=== PATIENT | male | born 1990 | race Caucasian/White ===

== ENCOUNTER 2018-01-22 14:36 | Inpatient (IN) | payer BC, OTHER ==
[~2018-01-22] VITALS: Ht 185.4 cm; Wt 79.4 kg
[2018-01-22 15:00] VITALS: BP 138/66
--- NOTE | 2018-01-22 15:00 | NUR ---
Pre-admission Note/Behavior: Client is seen in intake at this time. He appears flushed, disheveled, odorous, and appears to be in an intoxicated state. He stated "I am here cause I'm a fucking alcoholic." He is verbally aggressive, and uncooperative and appears to be angry. Client refuses to answer some admission questions. However, he states that he has not have any seizures in the past and is allergic to Pentobarbital. He wishes to be FULL CODE and follows a regular diet at home. He denies any family hx of substance abuse. VS: BP 138/60, Pulse 112, O2 sat 98%, PL 0/10. Temp 98.1. After taking his VS, patient aggressively removed his BP cuff and thew the BP cuff towards the nurse. Client was encouraged to comply and explained consequences of his actions. But client continues to argue and was becoming rude towards the nurse. He is alert and oriented x 4. Denies S/I or H/I at this time. No AV hallucinations noted. Explained the admission process to the client and client stated "Yea, yea, whatever. I'm sick of this shit." Will continue with the admission process when client arrives in the unit. Dr. Neves made aware of patient's current condition and behavior while in intake.
--- NOTE | 2018-01-22 15:06 | NUR ---
Admission Note: Admitted a 27 year old male admitted for ETOH withdrawal under the care of Dr. Kp Neves. He is alert and verbally responsive. Oriented x 4. Appears intoxicated but able to safely ambulate ad shelly in the unit. Respirations even and unlabored. No SOB noted. Body search done. No contraband was found. Skin check done. Noted with skin abrasion on his upper lip. Patient declined to state how he sustained the abrasion. Abdomen soft and non-distended. BS (+) in all 4 quadrants. No complains of N/V/D or constipation noted. Voids independently. LBM was today. Able to provide urine for UDS and able consented to blood draw. He reports that his longest period of sobriety was for 1 year, ending in 2016. He reports being incarcerated for assault earlier this week and immediately relapsed for 4 days. He states that he is currently homeless and is unemployed. He reports past medical hx of Depression, and Insomnia. He is also reports history of involuntary psychiatric hospitalization for suicidal ideations when he was 13 years old. Denies having a PCP at this time. Substance Use: 1. ETOH (beer, rum, vodka) - he reports drinking "20 shots" daily x 4 days. Last consumed was the day of present admission, 1 hour prior to arrival, "20 shots" of vodka. 2. Methamphetamine - reports ingesting it intranasally on a non-daily intermittent basis, and refuses to state when the last time he ingested it. Treatment History: 1. Patient states that he has been to multiple treatment programs in the past, the latest being in a residential treatment center 5 months ago. He also stated that he forgot the name of the place. Dr. Neves aware of patient's behavior and current medical condition. Placed patient on fall and seizure precautions. Call light in reach. Educated patient on his current plan of care. Educated on unit's policy and procedures. Addendum: 01/22/18 at 1653 by GUERA LEON LVN CIWA upon admission 11- due to sweating, agitation/anxiety. Patient is also uncooperative at this time. Encouraged appropriate behavior and to be respectful to staff.
[2018-01-22] MEDS ORDERED: MAG HYDROX/AL HYDROX/SIMETH 30 ML LIQUID UDC PO PRN (15:15)
[2018-01-22] MEDS ORDERED: ONDANSETRON 4 MG/2 ML VIAL IM PRN (15:15)
[2018-01-22] MEDS ORDERED: LOPERAMIDE HCL 2 MG CAPSULE PO PRN ×2 (15:15)
[2018-01-22] MEDS ORDERED: diphenhydrAMINE 50 MG CAPSULE PO PRN (15:15)
[2018-01-22] MEDS ORDERED: THIAMINE HCL 200 MG/2 ML VIAL IM ONE (15:15)
[2018-01-22] MEDS ORDERED: ACETAMINOPHEN 325 MG TABLET PO PRN (15:15)
[2018-01-22] MEDS ORDERED: MIRALAX 17 GM POWD.PACK PO PRN (15:15)
[2018-01-22] MEDS ORDERED: LORAZEPAM 2 MG/1 ML VIAL IM PRN (15:15)
[2018-01-22] MEDS ORDERED: DICYCLOMINE HCL 20 MG TABLET PO PRN (15:15)
[2018-01-22] MEDS ORDERED: IBUPROFEN 400 MG TABLET PO PRN (15:15)
[2018-01-22] MEDS ORDERED: ONDANSETRON ODT 4 MG TAB.RAPDIS SL PRN (15:15)
[2018-01-22] MEDS ORDERED: NICOTINE 14 MG/24HR PATCH TD PRN (15:15)
[2018-01-22] MEDS ORDERED: MAGNESIUM HYDROXIDE 30 ML LIQUID UDC PO PRN (15:15)
[2018-01-22] MEDS ORDERED: LORAZEPAM 1 MG TABLET PO PRN (15:15)
[2018-01-22] MEDS ORDERED: NICOTINE POLACRILEX 4 MG GUM-PK OF TEN BC PRN (15:15)
[2018-01-22] MEDS ORDERED: BUPR-96 PO (15:40)
[2018-01-22] MEDS ORDERED: QUET25TA PO (15:40)
[2018-01-22 15:47] LABS: BASOPHILS % (AUTO) 0.5 % (0.0-2.0); BILIRUBIN,TOTAL 0.1 mg/dL (0.2-1.0); CREATININE 1.1 mg/dL (0.6-1.3); EOSINOPHILS # (AUTO) 0.1 K/uL (0.0-0.7); EOSINOPHILS % (AUTO) 1.5 % (0.0-7.0); HEMATOCRIT 35.6 % (36.7-47.1); HEMOGLOBIN 12.2 g/dL (12.5-16.3); LYMPHOCYTES % (AUTO) 34.4 % (20.5-51.5); MAGNESIUM 1.9 mg/dL (1.8-2.4); MEAN CORPUSCULAR HEMOGLOBIN 30.5 uug (23.8-33.4); MEAN CORPUSCULAR HGB CONC 34 g/dL (32.5-36.3); MEAN CORPUSCULAR VOLUME 88.9 fL (73.0-96.2); MONOCYTES # (AUTO) 0.5 K/uL (2.0-10.0); MONOCYTES % (AUTO) 5.4 % (0.0-11.0); NEUTROPHILS # (AUTO) 5.1 K/uL (1.8-8.9); NEUTROPHILS % (AUTO) 58.2 % (38.5-71.5); PLATELET COUNT (AUTO) 284 K/uL (152-348); POTASSIUM 3.8 mmol/L (3.5-5.1); TOTAL PROTEIN, SERUM 6.9 g/dL (6.4-8.2); WHITE BLOOD COUNT (AUTO) 8.8 K/uL (3.6-10.2)
[2018-01-22 16:00] VITALS: BP 139/78
--- NOTE | 2018-01-22 16:00 | NUR ---
DOMENICA Byrnered: Patient is seen in his room. Laying in bed with eyes closed. Breathing even and unlabored. He refuses to be woken up at this time. Addendum: 01/22/18 at 1705 by GUERA LEON LVN Amended: Links added.
--- NOTE | 2018-01-22 16:00 | NUR ---
Vitamin B1 not administration: Patient refused Vitamin B1 injection at at this time, after multiple attempts and encouragement. Explained risk and benefits but patient refused and stated "Just get out of my room."
[2018-01-22 16:10] LABS: *AMPHETAMINE, URINE NEGATIVE (NEGATIVE); *BARBITURATE, URINE NEGATIVE (NEGATIVE); *CANNABINOID, URINE NEGATIVE (NEGATIVE); *COCCAINE, URINE NEGATIVE (NEGATIVE); *OPIATE, URINE NEGATIVE (NEGATIVE); *PHENCYCLIDINE SCREEN,URINE NEGATIVE (NEGATIVE)
--- NOTE | 2018-01-22 16:21 | NUR ---
Critical Lab: NIKA Kaminski RN received call from rBe Reddy from lab regarding patient's NIKA level of 0.22. Dr. Neves made aware.
--- NOTE | 2018-01-22 19:03 | NUR ---
End of Shift Notes: Patient is in his room at this time. No signs of discomfort noted. Appears disheveled, unshaven and unkempt. Room is filled with empty chip bags and empty juice bottles. Encouraged maintenance of personal hygiene and space. Patient's last CIWA 4. Refused Vitamin B1 injection at 1515. Patient still appears acutely intoxicated at this time. Appetite good. Consumed 100% of dinner. No meds given. Will continue to monitor.
--- NOTE | 2018-01-22 19:30 | NUR ---
Start of Shift Notes Received 27 y/o male px, admitted for medically supervised withdrawals from ETOH. Px is awake on bed in right side lying position. Px appears disheveled, odorous, and unkempt. Room is odorous. Px is anxious and demanding. Px stated my anxiety is 9/10 and I have H/A of 6/10. Px verbalized "I want Ativan, and I want that pill to knock me out". Px is advised to drink water 2-3 L daily or as tolerated. Bed on lowest position, side rails up 2x, and call light are within reach. We'll continue to monitor.
[2018-01-22 20:00] VITALS: BP 136/64
[2018-01-22] MEDS: LORAZEPAM 1 MG TABLET PO PRN (20:30)
--- NOTE | 2018-01-22 20:30 | NUR ---
PRN Ativan Ativan 1 mg/tab, 2 tabs given PO as PRN med for anxiety. CIWA 14. We'll continue to monitor.
--- NOTE | 2018-01-22 21:30 | NUR ---
Reassessment of Anxiety Px stated "My anxiety improved a little". CIWA 11. We'll continue to monitor.
[2018-01-23] VITALS: BP 129/67
[2018-01-23 04:00] VITALS: BP 126/71
--- NOTE | 2018-01-23 04:00 | NUR ---
CIWA deferred CIWA deferred at 0000 and 0400 due to the px is asleep, to assess if the px is awake per doctor's order. We'll continue to monitor.
--- NOTE | 2018-01-23 07:06 | NUR ---
End of Shift Notes During the shift, at 2029, Ativan 1mg/tab, 2 tabs given PO as PRN med. It was effective, CIWA improved from 14 to CIWA 11. Px's oral intake 1,400 ml, voided 3x. No BM. Slept for 9 hours. At 0630, px is asleep on bed in wyman position. Bed on lowest position, side rails up 2x, and call light are within reach. We'll continue to monitor. Px endorsed to AM shift nurse.
--- NOTE | 2018-01-23 07:40 | NUR ---
START OF SHIFT NOTE Received report from night nurse, patient received PRN 2mg Ativan, slept for 9 hours, last CIWA score was-11. Received patient disheveled, poor oral hygiene, odorous breath, diaphoretic,cloths thrown on the floor, room is odorous, poor eye contact, worried, anxious, agitated, restless,yawning. Patient is currently not on any taper but PRN'S available for increased s/s of withdrawal. Educated pt regarding plan of the day and medication regimen patient verbalized understanding. Safety measures in place. Will cont to monitor.
[2018-01-23 08:00] VITALS: BP 119/63
[2018-01-23] MEDS: MULTIVITAMINS,THERAPEUTIC TABLET PO SCH (08:48)
[2018-01-23] MEDS: THIAMINE HCL 100 MG TABLET PO SCH (08:48)
[2018-01-23] MEDS: FOLIC ACID 1 MG TABLET PO SCH (08:48)
--- NOTE | 2018-01-23 08:54 | NUR ---
PRN ATIVAN CIWA score noted 12, patient noted agitated, anxious, nauseated, light headed, Ativan 1mg PO administered as ordered. Will cont to monitor and reassess.
[2018-01-23] MEDS ORDERED: TUBERCULIN,PURIF.PROT.DERIV. 5 TU/0.1 ML TEST ID ONE (09:00)
--- NOTE | 2018-01-23 09:54 | NUR ---
ATIVAN REASSESSMENT CIWA score noted 7, per pt Ativan was effective feeling less anxious and agitated.
[2018-01-23] MEDS: buPROPion XL 150 MG TAB.SR.24H PO SCH (11:30)
[2018-01-23 12:00] VITALS: BP 128/71
[2018-01-23] MEDS: LORAZEPAM 1 MG TABLET PO PRN ×2 (12:43→23:23)
--- NOTE | 2018-01-23 12:43 | NUR ---
PRN ATIVAN CIWA score noted 15, patient reported increased agitation, anxiety, nausea, light headed, sweats, bilateral tremors noted. Ativan 2 mg PO administered as ordered. Will cont to monitor and reassess.
--- NOTE | 2018-01-23 13:43 | NUR ---
ATIVAN REASSESSMENT CIWA score noted 9, per pt Ativan was effective feeling less anxious and agitated.
[2018-01-23] MEDS: LORAZEPAM 1 MG TABLET PO SCH ×2 (14:58→20:35)
[2018-01-23 16:00] VITALS: BP 134/74
--- NOTE | 2018-01-23 18:56 | NUR ---
END OF SHIFT NOTE Patient presented with anxiety, agitation, nauseated, light headed, sweating, unshaven, garbage around room, flat, restless, irritable. Patient was given scheduled medications and PRN Ativan x2 noted to be effective. Patient rested in his room most of the day but went down to smoke couple of times. Encourage pt to attend groups and activities to learn new coping skills pt verbalized understanding. Vital signs WNL. Skin intact warm and dry to touch. Safety measures in place. Patient endorsed to night nurse in stable condition.
[2018-01-23 20:00] VITALS: BP 138/64
--- NOTE | 2018-01-23 20:00 | NUR ---
Start of Shift Pt is a 27 year old male admitted for ETOH withdrawal, placed on modified Ativan taper. At time of assessment, pt presents in room, alert/oriented x4. Pt appears unkempt, odorous, unshaven, flushed/clammy skin, clothes thrown on floor, anxious, sad/flat/depressed, guarded, tremors noted, reports feeling chills throughout body. Medications are due, safety measures in place, will continue to monitor.
[2018-01-23] MEDS ORDERED: QUETIAPINE FUMARATE 25 MG TABLET PO SCH (21:00)
--- NOTE | 2018-01-23 23:23 | NUR ---
PRN Administration CIWA 13, pt presents with anxiety/irritation/agitation, skin is flushed, tremors visible, skin noted with sweat, restlessness. Ativan 2mg PRN administered.
[2018-01-24] VITALS: BP 130/70
--- NOTE | 2018-01-24 | NUR ---
PRN Reassessment CIWA 8, BP 130/70, resp 16, SpO2 96% room air, temp 98 Needs met, safety measures in place, will continue to monitor. Addendum: 01/24/18 at 0550 by ELSIE LOGAN RN PRN Reassessment CIWA 8, BP 130/70, pulse 80 resp 16, SpO2 96% room air, temp 98 Needs met, safety measures in place, will continue to monitor.
[2018-01-24 04:00] VITALS: BP 121/75
--- NOTE | 2018-01-24 04:00 | NUR ---
MIREILLEWA Deferred d/t pt sleeping, to assess while pt is awake as ordered BP 121/75, pulse 83, resp 16, SpO2 99% room air, temp [address], will continue to monitor.
--- NOTE | 2018-01-24 07:07 | NUR ---
End of Shift Pt is a 27 year old male admitted for ETOH withdrawal, placed on modified Ativan taper. During shift, pt presented with s/s of withdrawal: Pt appeared unkempt, odorous, unshaven, flushed/clammy skin, clothes thrown on floor, anxious, sad/flat/depressed, guarded, tremors noted, reports feeling chills throughout body scheduled taper medications administered along with Ativan 2mg PRN. CIWA 13 decreased CIWA 8. Pt slept for 8 hours, intake of 1250 ml PO, voids x2 and stool x1. Safety measures in place, call light within reach, side rails up x2, bed locked and in low position. Endorsed to day shift nurse.
--- NOTE | 2018-01-24 07:50 | NUR ---
START OF SHIFT NOTE Received report from night nurse, patient received PRN 2mg Ativan, slept for 8 hours, last CIWA score was-8. Received patient disheveled, poor oral hygiene, diaphoretic, cloths thrown on the floor, room is odorous, poor eye contact, worried, anxious, agitated, restless. Patient is currently on modify Ativan taper tolerating well. Educated pt regarding plan of the day and medication regimen patient verbalized understanding. Safety measures in place. Will cont to monitor.
[2018-01-24 08:00] VITALS: BP 122/68
[2018-01-24] MEDS: THIAMINE HCL 100 MG TABLET PO SCH (08:36)
[2018-01-24] MEDS: FOLIC ACID 1 MG TABLET PO SCH (08:36)
[2018-01-24] MEDS: buPROPion XL 150 MG TAB.SR.24H PO SCH (08:36)
[2018-01-24] MEDS: MULTIVITAMINS,THERAPEUTIC TABLET PO SCH (08:36)
[2018-01-24] MEDS ORDERED: LORAZEPAM 1 MG TABLET PO SCH (09:00)
[2018-01-24] MEDS ORDERED: HYDROXYZINE PAMOATE 25 MG CAPSULE PO PRN (10:45)
--- NOTE | 2018-01-24 11:12 | NUR ---
Therapist met with client and encouraged him to start to attend groups and explained to client how important groups are for his treatment. Client reports that if he is not 'tired' he will consider attending groups.
[2018-01-24 12:09] LABS: HEPATITIS B SURFACE AG Negative (Negative)
[2018-01-24 12:14] VITALS: BP 118/70
--- NOTE | 2018-01-24 13:29 | NUR ---
PRN VISTARIL Patient c/o of anxiety, agitation, sweats. PRN Vistaril 25mg PO given as ordered. Will cont to monitor and reassess the pt.
[2018-01-24] MEDS ORDERED: NICO-671 TD (13:31)
[2018-01-24] MEDS ORDERED: HYDR-3895 PO (13:31)
--- NOTE | 2018-01-24 14:29 | NUR ---
VISTARIL REASSESSMENT Per pt medication was effective feeling less anxious and agitated.
--- NOTE | 2018-01-24 14:50 | NUR ---
AMA NOTE Pt left AMA, Pt refused to comply with treatment plan. Pt educated about the risks and consequences of leaving AMA, pt verbalized understanding but was adamant about leaving. Multiple staff members including the doctor, patient advocates and nurses attempted to reason with the pt without any success. VS WNL. Skin intact, pt denies any suicidal or homicidal ideations. Pt psychiatrist and MD were notified and aware. Patient was given a list of community resources, AMA forms explained and signed. All belongings returned to Patient. Patient left facility AMA on 01/24/18 at 1450.
== END 2018-01-24 14:50 | disposition left against medical advice (07) | DRG 894 ==
LOC: SRC 14:36
PROVIDERS: ADMIT Internal Medicine; ATTEND Internal Medicine
PROC: HZ2ZZZZ Detoxification Services for Substance Abuse Treatment (ICD-10-PCS; principal; 2018-01-22)
PROC: HZ31ZZZ Individual Counseling for Substance Abuse Treatment, Behavioral (ICD-10-PCS; 2018-01-24)
DX: F10.239 Alcohol dependence with withdrawal, unspecified (principal); F33.1 Major depressive disorder, recurrent, moderate; F15.10 Other stimulant abuse, uncomplicated; Y90.9 Presence of alcohol in blood, level not specified; Z59.0 Homelessness; G47.00 Insomnia, unspecified; F17.210 Nicotine dependence, cigarettes, uncomplicated; Z91.89 Other specified personal risk factors, not elsewhere classified; Z79.899 Other long term (current) drug therapy; Z59.1 Inadequate housing
CPT/HCPCS: 36415; 80307; 83735; 85025; 86580; 86592; 86705; 86803; 87340; 87806; A4663; G0480